=== PATIENT | female | born 1970 | race Caucasian/White ===

== ENCOUNTER → 2017-09-29 | Outpatient (CLI) | payer BC | LOC: M.CT 10:22 | DX: N83.11 Corpus luteum cyst of right ovary (principal); Z90.49 Acquired absence of other specified parts of digestive tract ==

== ENCOUNTER → 2018-11-14 | Outpatient (CLI) | payer BC ==
[2018-11-14 14:53] LABS: HEMATOCRIT 34.1 % (37.0-47.0); HEMOGLOBIN 11.5 gm/dL (12.0-15.0); MCH 31.5 pg (26.0-34.0); MCHC 33.8 g/dL (28.0-37.0); MCV 93.2 fL (80.0-100.0); RBC 3.66 mil/uL (4.20-5.00); RDW-CV 15.3 % (10.5-14.5)
[2018-11-14 15:02] LABS: CALCIUM 8.4 mg/dL (8.5-10.1); CREATININE 0.9 mg/dL (0.6-1.3); POTASSIUM 3.9 mmol/L (3.5-5.1)
== END ==
LOC: M.LAB 14:33
PROVIDERS: Podiatrist
DX: Z01.818 Encounter for other preprocedural examination (principal); M20.11 Hallux valgus (acquired), right foot

== ENCOUNTER 2020-04-28 16:03 | Emergency (ER) | payer BC ==
[~2020-04-28] VITALS: Ht 160 cm; Wt 70.8 kg
[2020-04-28] MEDS ORDERED: NORCO 10-325 T1 EACH PO (16:09)
[2020-04-28 16:25] LABS: MPV 7.3 fl. (7.2-11.1)
[2020-04-28 16:27] LABS: HEMOGLOBIN 12.7 gm/dL (12.0-15.0); MCH 31.4 pg (26.0-34.0); NUCLEATED RBCS 0 /100WBC
[2020-04-28 16:30] LABS: ABSOLUTE EOSINOPHILS 0.1 thou/uL (0.0-0.7); ABSOLUTE LYMPHOCYTES 2.1 thou/uL (0.8-5.3); ABSOLUTE MONOCYTES 0.6 thou/uL (0.0-1.2); ABSOLUTE NEUTROPHILS 5.9 thou/uL (1.6-8.1); BASOPHILS 0.5 %; EOSINOPHILS 1.2 %; HEMATOCRIT 38.3 % (37.0-47.0); LYMPHOCYTES 23.5 %; MCHC 33.2 g/dL (28.0-37.0); MCV 94.5 fL (80.0-100.0); MONOCYTES 6.5 %; PLATELET COUNT* 381 thou/uL (150-400); POLYS 68.3 %; RBC 4.05 mil/uL (4.20-5.00); RDW-CV 12.9 % (10.5-14.5); WBC 8.7 thou/uL (4.0-11.0)
[2020-04-28 16:34] LABS: CALCIUM 8.8 mg/dL (8.5-10.1); CREATININE 0.9 mg/dL (0.6-1.3); POTASSIUM 3.9 mmol/L (3.5-5.1)
[2020-04-28 16:37] LABS: APTT 23.4 Seconds (25.0-31.3); PROTIME 10.3 Seconds (9.20-11.50)
[2020-04-28 16:48] LABS: ALBUMIN 4.2 g/dL (3.4-5.0); CK-MB MASS 0.8 ng/mL (<0.5-3.6); MAGNESIUM 2.5 mg/dL (1.8-2.4); TOTAL BILIRUBIN 0.2 mg/dL (<0.1-1.0); TOTAL PROTEIN 7.5 g/dL (6.4-8.2)
[2020-04-28 17:01] VITALS: BP 153/86
--- NOTE | 2020-04-29 15:07 | EKG ---
[place] [address] ELECTROCARDIOGRAM REPORT Name: CALLI HARPER Room: [facility]#: [id number] Admission: 04/28/20 Attend Phys: Discharge: 04/28/20 Date of : 70 Date of Service: 04/28/20 1607 Report #: [id number] THIS REPORT FOR: //name// [facility] ED Test Date: 2020-04-28 Test Time: 16:07:24 Pat Name: CALLI HARPER Department: Room: Gender: Cda Teacher: : 1970 Requested By: Kota Wylie Order Number: [id number] MD: Iban Deras Measurements Intervals [place] Rate: 57 P: 57 CT: 157 QRS: 26 QRSD: 102 T: 42 QT: 444 QTc: 433 Interpretive Statements Sinus rhythm Borderline low voltage, extremity leads No previous ECG available for comparison Electronically Signed On 04-29-2020 15:07:20 SCAFFOLDER by Iban Deras [email or web address] <ELECTRONICALLY SIGNED> By: Iban Deras MD, [facility] 04/29/20 1507 1607 160 Iban Deras MD, FACC /EPI
== END 2020-04-28 17:02 | disposition home or self-care (01) ==
LOC: M.ERS 16:03
PROVIDERS: Family Medicine
DX: R07.89 Other chest pain (principal)

== ENCOUNTER 2020-05-22 03:03 | Emergency (ER) | payer BC ==
[~2020-05-22] VITALS: Ht 160 cm; Wt 71.7 kg
[~2020-05-22 03:03] MED LIST: NORCO 10-325 T1 EACH PO
[2020-05-22] MEDS ORDERED: PREDNISONE 5 MG5 M1 PO (03:12)
[2020-05-22 03:49] LABS: URINE BILIRUBIN NEGATIVE (Negative); URINE BLOOD NEGATIVE (Negative); URINE CLARITY CLEAR; URINE COLOR YELLOW; URINE GLUCOSE-RANDOM NEGATIVE (Negative); URINE KETONES NEGATIVE (Negative); URINE LEUKOCYTES-REFLEX TRACE (Negative); URINE NITRITE-REFLEX NEGATIVE (Negative); URINE PROTEIN NEGATIVE (Negative); URINE SPECIFIC GRAVITY 1.015 (1.005-1.030); URINE UROBILINOGEN 0.2 E.U./dl (0.2-1.0)
[2020-05-22 04:03] LABS: CASTS None Seen /LPF (None Seen); SQUAMOUS 4-10 Moderate /LPF (0-3)
[2020-05-22 04:04] LABS: URINE RBC None Seen /HPF (0-2); URINE WBC-REFLEX 6-15 Few /HPF (0-5)
[2020-05-22 04:05] LABS: CRYSTALS None Seen /LPF (None Seen)
[2020-05-22] MEDS ORDERED: TORADOL 10 MG T10 MG PO (04:05)
[2020-05-22] MEDS ORDERED: CYCLOBENZAPRINE5 MG PO (04:05)
[2020-05-22 04:08] LABS: AMP/METHAMP Negative (Negative); BARBITURATES Negative (Negative); BENZODIAZEPINES Negative (Negative); COCAINE Negative (Negative); METHADONE Negative (Negative); OPIATES Negative (Negative); PCP Negative (Negative); THC Negative (Negative)
[2020-05-22 04:47] LABS: CALCIUM 8.8 mg/dL (8.5-10.1); CREATININE 0.8 mg/dL (0.6-1.3); POTASSIUM 3.8 mmol/L (3.5-5.1)
[2020-05-22 04:52] LABS: ALBUMIN 3.4 g/dL (3.4-5.0); TOTAL BILIRUBIN 0.2 mg/dL (<0.1-1.0); TOTAL PROTEIN 6.4 g/dL (6.4-8.2)
[2020-05-22 05:04] VITALS: BP 126/75
== END 2020-05-22 05:05 | disposition home or self-care (01) ==
LOC: M.ERS 03:03
PROVIDERS: Personal Emergency Response Attendant
DX: M79.605 Pain in left leg (principal); M79.604 Pain in right leg; M54.5 Low back pain; R53.1 Weakness; Z79.899 Other long term (current) drug therapy